=== PATIENT | female | born 1985 | race Caucasian/White ===

== ENCOUNTER → 2021-11-05 | Outpatient (RCR) | payer OTHER ==
[~2021-11-05] MED LIST: IBU800 M1 PO; PERCOCET 325 MG1 TA2 PO; PRENATAL1 TA7 PO
== END ==
LOC: WSOT
DX: S52.032A Displaced fracture of olecranon process with intraarticular extension of left ulna, initial encounter for closed fracture (principal); S62.617B Displaced fracture of proximal phalanx of left little finger, initial encounter for open fracture

== ENCOUNTER 2021-11-26 11:00 | Outpatient (RCR) | payer OTHER | END 2021-12-06 | disposition home or self-care (01) | LOC: WSOT | DX: S52.032D Displaced fracture of olecranon process with intraarticular extension of left ulna, subsequent encounter for closed fracture with routine healing (principal); S62.617D Displaced fracture of proximal phalanx of left little finger, subsequent encounter for fracture with routine healing; X58.XXXD Exposure to other specified factors, subsequent encounter ==

== ENCOUNTER 2021-12-18 11:15 | Outpatient (RCR) | payer OTHER | END 2022-01-06 | disposition home or self-care (01) | LOC: WSOT | DX: S52.032D Displaced fracture of olecranon process with intraarticular extension of left ulna, subsequent encounter for closed fracture with routine healing (principal); S62.617D Displaced fracture of proximal phalanx of left little finger, subsequent encounter for fracture with routine healing; X58.XXXD Exposure to other specified factors, subsequent encounter ==